=== PATIENT | female | born 1970 | race Caucasian/White ===

== ENCOUNTER 2019-10-21 14:45 | Emergency (ER) | payer SELFPAY ==
[2019-10-21] MEDS ORDERED: Sodium Chloride 0.9% 10 ML Syringe FLUSH PRN (15:09)
[2019-10-21] MEDS ORDERED: Labetalol 100 MG/20 ML MDV IVPUSH ONE (15:10)
--- NOTE | 2019-10-21 15:35 | CT ---
Head CT Technique: Multiple axial sections through the brain were obtained. Intravenous contrast was not utilized. Comparison: No prior intracranial imaging is available. Findings: Ventricles along with basal cisterns and sulci over the convexities are within normal limits for the patient's age. No abnormal parenchymal densities are seen. No evidence of intracranial hemorrhage. No midline shift or mass-effect is seen. Bone window settings were reviewed. Mild mucosal thickening is noted within the ethmoid sinuses. Mastoid sinuses show nothing acute. No acute calvarial abnormality is appreciated. Impression: 1. Minimal ethmoid sinus findings believed to be incidental. 2. No acute intracranial abnormality is identified. Diagnostic code #2 This report was dictated in MDT
--- NOTE | 2019-10-21 16:41 | EDM.PDOC ---
ED HPI GENERAL MEDICAL PROBLEM - General Chief Complaint: Chest Pain Stated Complaint: HIGH BP Time Seen by Provider: 10/21/19 14:53 Source of Information: Reports: Patient History Limitations: Reports: No Limitations - History of Present Illness INITIAL COMMENTS - FREE TEXT/NARRATIVE: The patient presents with hypertension, headache and chest pressure. For a few week she has noticed that her BP has been elevated. Last night she started having a headache and her BP was in the 180s systolic. Today her BP is in the 200s systolic. She also has some pressure in her chest with some shortness of breath. She has no history of blood pressure. She has no numbness or weakness. She does not have any fever, chills, cough, congestion, runny nose, abdominal pain, nausea or vomiting. She does feel dizzy at times. Onset: Gradual Duration: Day(s): Location: Reports: Head, Chest Quality: Reports: Sharp Severity: Moderate Improves with: Reports: None Worsens with: Reports: None Associated Symptoms: Reports: Chest Pain, Headaches. Denies: Cough, Fever/ Chills, Nausea/Vomiting, Shortness of Breath Chest Pain Score (Numeric/FACES): 10 - Related Data Allergies Allergy/AdvReac Type Severity Reaction Status Date / Time No Known Allergies Allergy Verified 10/21/19 14:57 Home Meds: Home Meds Metoprolol Succinate 50 mg PO DAILY #30 tab.er.24h 10/21/19 [Rx] Past Medical History HEENT History: Reports: Impaired Vision Cardiovascular History: Reports: Hypertension - Past Surgical History Female Surgical History: Reports: Hysterectomy, Tubal Ligation Social & Family History - Tobacco Use Smoking Status *Q: Current Every Day Smoker Years of Tobacco use: 35 Packs/Tins Daily: 1 - Caffeine Use Caffeine Use: Reports: None - Recreational Drug Use Recreational Drug Use: No ED ROS GENERAL - Review of Systems Review Of Systems: See Below Constitutional: Reports: No Symptoms HEENT: Reports: No Symptoms Respiratory: Reports: No Symptoms Cardiovascular: Reports: Chest Pain Endocrine: Reports: No Symptoms GI/Abdominal: Reports: No Symptoms : Reports: No Symptoms Musculoskeletal: Reports: No Symptoms Skin: Reports: No Symptoms Neurological: Reports: Headache ED EXAM, GENERAL - Physical Exam Exam: See Below Exam Limited By: No Limitations General Appearance: Alert, No Apparent Distress Ears: Normal External Exam Nose: Normal Inspection Head: Atraumatic, Normocephalic Neck: Normal Inspection Respiratory/Chest: No Respiratory Distress, Lungs Clear, Normal Breath Sounds Cardiovascular: Regular Rate, Rhythm, No Edema, No Murmur GI/Abdominal: Soft, Non-Tender, No Organomegaly, No Mass Back Exam: Normal Inspection Extremities: Normal Inspection EKG INTERPRETATION EKG Date: 10/21/19 Time: 14:55 Rhythm: Other (sinus tachycardia) Rate (Beats/Min): 112 [place]: Normal P-Wave: Present QRS: Normal ST-T: Normal QT: Normal Course - Vital Signs Last Recorded V/S: Last Vital Signs Temp 97.4 F 10/21/19 14:57 Pulse 111 H 10/21/19 14:57 Resp 13 10/21/19 14:57 BP 193/118 H 10/21/19 14:57 Pulse Ox 99 10/21/19 14:57 - Orders/Labs/Meds Orders: Active Orders 24 hr Category Date Time Status Cardiac Monitoring [RC] . DIRECTED Care 10/21/19 15:09 Active EKG Documentation Completion [RC] STAT Care 10/21/19 15:09 Active Peripheral IV Care [RC] . DIRECTED Care 10/21/19 15:09 Active TSH [CHEM] Stat Lab 10/21/19 15:00 Received Sodium Chloride 0.9% [Saline Flush] Med 10/21/19 15:09 Active 10 ml FLUSH ASDIRECTED PRN Peripheral IV Insertion Adult [OM.PC] Stat Oth 10/21/19 15:09 Ordered Medication Orders Sodium Chloride (Saline Flush) 10 ml FLUSH ASDIRECTED PRN PRN Reason: Keep Vein Open Last Admin: 10/21/19 16:15 Dose: 10 ml Labs: Laboratory Tests 10/21/19 10/21/19 Range/Units 15:00 15:00 WBC 12.73 H (3.98-10.04) K/mm3 RBC 5.22 (3.98-5.22) M/mm3 Hgb 13.3 (11.2-15.7) gm/dl Hct 41.4 (34.1-44.9) % MCV 79.3 L (79.4-94.8) fl MCH 25.5 L (25.6-32.2) pg MCHC 32.1 L (32.2-35.5) g/dl RDW Std Deviation 45.0 (36.4-46.3) fL Plt Count 454 H (182-369) K/mm3 MPV 9.7 (9.4-12.3) fl Neut % (Auto) 61.0 (34.0-71.1) % Lymph % (Auto) 24.8 (19.3-51.7) % [place]man % (Auto) 10.8 (4.7-12.5) % Eos % (Auto) 2.7 (0.7-5.8) Baso % (Auto) 0.5 (0.1-1.2) % Neut # (Auto) 7.75 H (1.56-6.13) K/mm3 Lymph # (Auto) 3.16 (1.18-3.74) K/mm3 [place] # (Auto) 1.37 H (0.24-0.36) K/mm3 Eos # (Auto) 0.35 (0.04-0.36) K/mm3 Baso # (Auto) 0.07 (0.01-0.08) K/mm3 Manual Slide Review Normal smear Sodium 141 (136-145) mEq/L Potassium 3.6 (3.5-5.1) mEq/L Chloride 104 (98-107) mEq/L Carbon Dioxide 25 (21-32) mEq/L Anion Gap 15.6 H (5-15) BUN 16 (7-18) mg/dL Creatinine 1.0 (0.55-1.02) mg/dL Est Cr Clr Drug Dosing 55.06 mL/min Estimated GFR (MDRD) 58 (>60) mL/min BUN/Creatinine Ratio 16.0 (14-18) Glucose 96 (74-106) mg/dL Calcium 9.5 (8.5-10.1) mg/dL Total Bilirubin 0.3 (0.2-1.0) mg/dL AST 36 (15-37) U/L ALT 77 H (14-59) U/L Alkaline Phosphatase 213 H (46-116) U/L Troponin I < 0.017 (0.00-0.056) ng/mL Total Protein 8.0 (6.4-8.2) g/dl Albumin 4.1 (3.4-5.0) g/dl Globulin 3.9 gm/dL Albumin/Globulin Ratio 1.1 (1-2) Meds: Medications Generic Name Dose Route Start Last Admin Trade Name Freq PRN Reason Stop Dose Admin Sodium Chloride 10 ml 10/21/19 15:09 10/21/19 16:15 Saline Flush FLUSH 10 ml ASDIRECTED PRN Administration Keep Vein Open Discontinued Medications Generic Name Dose Route Start Last Admin Trade Name Freq PRN Reason Stop Dose Admin Labetalol HCl 20 mg 10/21/19 15:10 10/21/19 16:14 Normodyne IVPUSH 10/21/19 15:11 20 mg ONETIME ONE Administration Protocol - Re-Assessments/Exams Free Text/Narrative Re-Assessment/Exam: 10/21/19 16:41 I ordered an IV saline lock, labetolol 20mg IV, EKG, CT of her head and labs. Her EKG shows a NSR with no acute changes. Her CT shows minimal ethmoid sinus findings believed to be incidental. No acute intracranial abnormality is identified. Her WBC was up slightly at 12.73. Her ALT was slightly elevated at 77. Her alk phos was elevated at 213. Her troponin is negative. Her BP is better and she feels better. I will get her on some metoprolol succinate. Departure - Departure Time of Disposition: 16:55 Disposition: Home, Self-Care 01 Condition: Good Clinical Impression: Atypical chest pain Hypertension Qualifiers: Hypertension type: essential hypertension Qualified Code(s): I10 - Essential ( primary) hypertension Prescriptions: Metoprolol Succinate 50 mg PO DAILY #30 tab.er.24h Referrals: PCP,None [Primary Care Provider] - Georgia Onofre NP [Ordering Only Provider] - 1 Week Forms: ED Department Discharge Additional Instructions: Take the metoprolol 50mg daily. Take tylenol or motrin for pain. Please return if you are worse. Follow up with Georgia Roldan in [place] within a week or two. Sepsis Event Note (ED) - Evaluation Sepsis Screening Result: No Definite Risk - Focused Exam Vital Signs: Vital Signs Temp Pulse Resp BP Pulse Ox 10/21/19 14:57 97.4 F 111 H 13 193/118 H 99 - My Orders Last 24 Hours: My Active Orders 10/21/19 15:00 TSH [CHEM] Stat 10/21/19 15:09 Cardiac Monitoring [RC] . DIRECTED EKG Documentation Completion [RC] STAT Peripheral IV Care [RC] . DIRECTED Sodium Chloride 0.9% [Saline Flush] 10 ml FLUSH ASDIRECTED PRN Peripheral IV Insertion Adult [OM.PC] Stat - Assessment/Plan Last 24 Hours: My Active Orders 10/21/19 15:00 TSH [CHEM] Stat 10/21/19 15:09 Cardiac Monitoring [RC] . DIRECTED EKG Documentation Completion [RC] STAT Peripheral IV Care [RC] . DIRECTED Sodium Chloride 0.9% [Saline Flush] 10 ml FLUSH ASDIRECTED PRN Peripheral IV Insertion Adult [OM.PC] Stat
== END 2019-10-21 17:08 | disposition home or self-care (01) ==
LOC: JD.ED 14:45
DX: I10 Essential (primary) hypertension (principal); R07.89 Other chest pain; F17.210 Nicotine dependence, cigarettes, uncomplicated; R00.0 Tachycardia, unspecified; Z79.899 Other long term (current) drug therapy
CPT/HCPCS: 36415; 70450; 80053; 84443; 84484; 85025; 93005; 96374; 99285; J3490; 93010; 99284